=== PATIENT | male | born 1990 | race Caucasian/White ===

== ENCOUNTER 2021-11-16 09:43 | Inpatient (IN) | payer OTHER ==
[~2021-11-16] VITALS: Ht 152.4 cm; Wt 86.2 kg
[2021-11-16] MEDS ORDERED: SODIUM CHLORIDE 0.9% 1,000 ML IV ONE (11:30)
[2021-11-16 11:47] LABS: BASOPHILS % 0.2 % (0.0-2.0); EOSINOPHILS % 2.7 % (0.0-5.0); HEMATOCRIT. 46.7 % (42.0-52.0); HEMOGLOBIN. 16.3 g/dL (14.0-18.0); LYMPHOCYTES % 11.6 % (20.0-50.0); MEAN CORPUSCULAR HEMOGLOBIN 27.8 pg (28.0-32.0); MEAN CORPUSCULAR VOLUME 79.6 fL (80.0-94.0); MEAN PLATELET VOLUME 8.9 fl (7.4-10.4); NEUTROPHILS % 78.5 % (40.0-76.0); PLATELET 236 x1000/uL (130-400); RED BLOOD CELL COUNT 5.87 mill/uL (4.7-6.1); RED CELL DISTRIBUTION WIDTH 12.3 % (11.6-14.6)
[2021-11-16 11:53] LABS: CHLORIDE 108 mEq/L (98-107)
[2021-11-16] MEDS ORDERED: POTASSIUM CHLORIDE INJ 40 MEQ in DEXT 5% WATER 250 ML IV ONE (12:15)
[2021-11-16] MEDS ORDERED: MAGNESIUM 2 G PREMIX 50 ML IV ONE (12:15)
[2021-11-16] MEDS ORDERED: POTASSIUM CHLORIDE 20MEQ/PACKET PO ONE (12:15)
[2021-11-16] MEDS ORDERED: MAGNESIUM 2 G PREMIX 50 ML IV NR (12:30)
[2021-11-16] MEDS: KCL 20MEQ/100ML PREMIX 100 ML IV SCH ×2 (15:44→17:36)
[2021-11-16 16:52] LABS: *AMPHETAMINES SCREEN URINE NEGATIVE (NEGATIVE); *BARBITURATES SCREEN URINE NEGATIVE (NEGATIVE); *BENZODIAZEPINES SCREEN URINE NEGATIVE (NEGATIVE); *COCAINE SCREEN URINE NEGATIVE (NEGATIVE); CANNABINOID URINE SCREEN NEGATIVE (NEGATIVE); METHADONE URINE SCREEN NEGATIVE (NEGATIVE); OPIATES URINE SCREEN NEGATIVE (NEGATIVE); PHENCYCLIDINE URINE SCREEN NEGATIVE (NEGATIVE)
[2021-11-16] MEDS ORDERED: HYDROCODONE/ACETAMINOPHEN 5/325MG TABLET PO PRN (18:15)
[2021-11-16] MEDS ORDERED: DOCUSATE SODIUM 100MG CAPSULE PO PRN (18:15)
[2021-11-16] MEDS ORDERED: ONDANSETRON HCL 4MG/2ML INJ IV PRN (18:15)
[2021-11-16] MEDS ORDERED: CLONIDINE 0.1MG TABLET PO PRN (18:15)
[2021-11-16] MEDS ORDERED: ACETAMINOPHEN 325MG TABLET PO PRN (18:15)
[2021-11-16] MEDS ORDERED: NALOXONE HCL 0.4MG/ML VIAL IV PRN (18:30)
[2021-11-16] MEDS: AMLODIPINE 10MG TABLET PO SCH (18:41)
[2021-11-16 23:30] VITALS: BP 160/88
[2021-11-17] VITALS: BP 145/68
[2021-11-17] MEDS ORDERED: *PATIENT'S OWN MEDICATION STORAGE XX SCH (00:15)
[2021-11-17 04:00] VITALS: BP 142/62
[2021-11-17] MEDS ORDERED: cymbalta (04:47)
[2021-11-17 06:47] LABS: BASOPHILS % 0.4 % (0.0-2.0); EOSINOPHILS % 7.2 % (0.0-5.0); HEMATOCRIT. 39.8 % (42.0-52.0); HEMOGLOBIN. 13.9 g/dL (14.0-18.0); LYMPHOCYTES % 33.2 % (20.0-50.0); MEAN CORPUSCULAR HEMOGLOBIN 27.7 pg (28.0-32.0); MEAN CORPUSCULAR VOLUME 79.1 fL (80.0-94.0); MONOCYTES % 12.3 % (2.0-8.0); NEUTROPHILS % 46.9 % (40.0-76.0); PLATELET 218 x1000/uL (130-400); RED BLOOD CELL COUNT 5.02 mill/uL (4.7-6.1); RED CELL DISTRIBUTION WIDTH 12.5 % (11.6-14.6)
[2021-11-17 07:01] LABS: CHLORIDE 111 mEq/L (98-107)
[2021-11-17 07:17] LABS: HDL CHOLESTEROL 31 mg/dL (40-59)
[2021-11-17 07:22] LABS: LDL CHOLESTEROL 53 mg/dL (5-100)
[2021-11-17 08:00] VITALS: BP 113/56
[2021-11-17] MEDS: AMLODIPINE 10MG TABLET PO SCH (08:31)
[2021-11-17 12:00] VITALS: BP 126/66
[2021-11-17] MEDS ORDERED: PNEUMOCOCCAL 23-VAL P-SAC VAC 0.5 ML IM ONE (12:00)
[2021-11-17 16:00] VITALS: BP 122/64
[2021-11-17 20:00] VITALS: BP 120/62
[2021-11-18] VITALS: BP 129/72
[2021-11-18 04:00] VITALS: BP 126/70
[2021-11-18 07:50] LABS: CREATINE KINASE 72 IU/L (39-308)
[2021-11-18 08:00] VITALS: BP 123/62
[2021-11-18] MEDS: AMLODIPINE 10MG TABLET PO SCH (08:51)
[2021-11-18 12:00] VITALS: BP 128/70
[2021-11-18] MEDS: DULOXETINE HCL 30MG DR CAPSULE PO SCH (12:14)
[2021-11-18 16:00] VITALS: BP 122/61
[2021-11-18 20:00] VITALS: BP 131/79
[2021-11-18] MEDS ORDERED: TRAZODONE HCL 50MG TABLET PO SCH (21:00)
[2021-11-18] MEDS ORDERED: SPIRONOLACTONE 25MG TABLET PO SCH (22:00)
[2021-11-18] MEDS ORDERED: ACETAZOLAMIDE 250MG TABLET PO SCH (23:00)
[2021-11-19] VITALS: BP 137/65
[2021-11-19 04:00] VITALS: BP 137/65
[2021-11-19 08:00] VITALS: BP 111/51
[2021-11-19] MEDS: DULOXETINE HCL 30MG DR CAPSULE PO SCH (08:20)
[2021-11-19] MEDS: AMLODIPINE 10MG TABLET PO SCH (08:25)
[2021-11-19 10:36] VITALS: BP 111/51
[2021-11-22 09:09] LABS: ANA IFA Negative (.)
[2021-11-23 10:08] LABS: ANTI-MYELOPEROXIDASE AB < 9.0 U/mL (0.0-9.0); ANTI-PROTEINASE 3 ABS < 3.5 U/mL (0.0-3.5)
[2021-11-24 13:07] LABS: ATYPICAL P-ANCA <1:20 titer (Neg:<1:20); CYTOPLASMIC C-ANCA <1:20 titer (Neg:<1:20); PERINUCLEAR P-ANCA <1:20 titer (Neg:<1:20)
== END 2021-11-19 11:06 | disposition home or self-care (01) | DRG 92 ==
LOC: ER 09:43 → EDBEDREQ 12:12 → MICUSO 15:11 → EDBEDREQTM 15:25 → EDBEDREQ 15:25 → EDBEDREQSVC 21:03 → EDBEDREQTM 21:03 → 6EST 23:14
PROVIDERS: ADMIT Hospitalist; ATTEND Hospitalist
DX: G72.3 Periodic paralysis (principal); R65.10 Systemic inflammatory response syndrome (SIRS) of non-infectious origin without acute organ dysfunction; M47.817 Spondylosis without myelopathy or radiculopathy, lumbosacral region; R63.5 Abnormal weight gain; F32.A Depression, unspecified; M51.27 Other intervertebral disc displacement, lumbosacral region; F41.9 Anxiety disorder, unspecified; Z20.822 Contact with and (suspected) exposure to COVID-19; Z68.37 Body mass index [BMI] 37.0-37.9, adult; R25.1 Tremor, unspecified; R53.1 Weakness; E83.52 Hypercalcemia
CPT/HCPCS: 36415; 70551; 72146; 72148; 73718; 80053; 80061; 80305; 82330; 82550; 83520; 83735; 84484; 85025; 85651; 86235; 86256; 86431; 87426; 93005; 97110; 97162; 97166; 97530; 99291; J3475; J3480; J7030; J7060